=== PATIENT | male | born 1995 | race Caucasian/White ===

== ENCOUNTER 2020-02-19 22:40 | Emergency (ER) | payer SELFPAY ==
[~2020-02-19] VITALS: Ht 165.1 cm; Wt 55.4 kg
[2020-02-19 22:46] VITALS: Ht 165.1 cm; Wt 55.4 kg
[2020-02-19 23:22] LABS: BASOPHIL % 0 % (0-2); PLATELET COUNT 164 x10^3mcL (130-400); RED CELL DISTRIBUTION WIDTH 14.1 % (11.5-14.5)
[2020-02-19 23:32] LABS: CALCIUM 9.5 mg/dL (8.5-10.1); CHLORIDE SERUM 103 mmol/L (98-107); CREATININE SERUM 0.9 mg/dL (0.7-1.3); GFR1 > 60 mL/min; GLUCOSE SERUM 107 mg/dL (74-106); POTASSIUM SERUM 3.7 mmol/L (3.5-5.1); SODIUM SERUM 141 mmol/L (136-145)
[2020-02-19 23:36] LABS: ALBUMIN 4.4 g/dL (3.4-5.0); ALKALINE PHOSPHATASE 81 U/L (46-116); ALT/SGPT 29 U/L (16-63); AST/SGOT 27 U/L (15-37); BILIRUBIN TOTAL 0.4 mg/dL (0.20-1.00); LIPASE 55 IU/L (73-393); TOTAL PROTEIN, SERUM 7.5 g/dL (6.4-8.2)
[2020-02-20 00:07] VITALS: BP 113/54
== END 2020-02-20 00:06 | disposition home or self-care (01) ==
LOC: ED 22:40
PROVIDERS: Emergency Medicine
DX: R10.84 Generalized abdominal pain (principal); R06.4 Hyperventilation; R06.02 Shortness of breath; R00.2 Palpitations; R20.2 Paresthesia of skin
CPT/HCPCS: 36415

== ENCOUNTER 2020-11-27 00:19 | Emergency (ER) | payer MEDICAID ==
[~2020-11-27] VITALS: Ht 167.6 cm; Wt 55.8 kg
[2020-11-27 00:53] VITALS: Ht 167.6 cm; Wt 55.8 kg
[2020-11-27 02:00] VITALS: BP 110/51
== END 2020-11-27 02:00 | disposition admitted as inpatient to this hospital (09) ==
LOC: ED 00:19
DX: S01.21XA Laceration without foreign body of nose, initial encounter (principal); Y04.2XXA Assault by strike against or bumped into by another person, initial encounter; Y93.89 Activity, other specified; Y92.89 Other specified places as the place of occurrence of the external cause; Y99.8 Other external cause status
CPT/HCPCS: 90715